=== PATIENT | female | born 1975 | race Caucasian/White ===

== ENCOUNTER 2017-07-03 10:09 | Emergency (ER) | payer OTHER ==
[2017-07-03] MEDS ORDERED: ASPIRIN 81 MG CHEWABLE TABLET ONE (10:49)
[2017-07-03] MEDS ORDERED: FAMOTIDINE 20 MG/2 ML VIAL IV ONE (10:49)
[2017-07-03 10:54] LABS: Absolute Lymphocytes (CBC) 2.1 K/uL (0.7-4.9); Absolute Monocytes 0.4 K/uL (0.1-1.3); Absolute Neutrophil 6.1 K/uL (1.8-8.0); Basophils % 0.6 % (0-1.3); Eosinophils % 1.6 % (0-4.4); Hematocrit 41.4 % (36.0-45.0); Lymphocytes % 23.4 % (15.3-44.8); MCV 92.9 fL (80-100); MPV 8.9 fL (7.6-11.3); Monocytes % 4.7 % (3.3-12.3); RBC Red Blood Cell Count 4.46 M/uL (3.86-4.86)
[2017-07-03 11:00] LABS: Protime INR 0.91
--- NOTE | 2017-07-03 11:01 | RAD REPORT ---
EXAM DESCRIPTION: Jesse Single View07/03/2017 10:56 am CLINICAL HISTORY: Chest pain COMPARISON: January 2016 FINDINGS: The lungs appear clear of acute infiltrate. The heart is normal size IMPRESSION: No acute abnormalities displayed
[2017-07-03 11:07] LABS: Bicarbonate 28 mEq/L (21-31); Glucose Level 97 mg/dL (65-120); Potassium 3.8 mEq/L (3.6-5.0); Sodium Level 137 mEq/L (135-145)
[2017-07-03 11:13] LABS: ALT/SGPT 19 IU/L (10-60); AST/SGOT 21 IU/L (10-42); Albumin 4.1 g/dL (3.2-5.5); Alkaline Phosphatase 77 IU/L (42-121); BUN Blood Urea Nitrogen 9 mg/dL (6-20); Bilirubin Direct < 0.1 mg/dL (0-0.2); Bilirubin Total 0.4 mg/dL (0.3-1.2); Creatine Phosphokinase 87 IU/L (22-269); Magnesium 1.9 mg/dL (1.8-2.5)
[2017-07-03 11:32] LABS: CKMB Creatine Kinase MB 1.8 ng/ml (0.3-4.0)
[2017-07-03 11:37] LABS: Urine Blood NEGATIVE (NEG); Urine Glucose NEGATIVE (NEG); Urine Protein NEGATIVE (NEG); Urine pH 7.5 (5.0-7.0)
--- NOTE | 2017-07-03 12:25 | ER ---
Nurse's Notes [facility] Name: Rosa Guo Age: 42 yrs Sex: Female : 1975 Arrival Date: 07/03/2017 Time: 10:10 Bed 5 Private MD: Diagnosis: Chest pain, unspecified Presentation: 07/03 10:17 Presenting complaint: Patient states: "I was woken up about 2am from chest pain and my sv blood pressure was 145/112. It went down to just discomfort and then came back pain around 5 am when I was going to work." c/o fatigue and back discomfort. 1st CP episode lasted "a couple of hours.". Transition of care: patient was not received from another setting of care. Onset of symptoms was July 03, 2017 at 02:00. 10:17 Method Of Arrival: Wheelchair sv 10:17 Acuity: WILBERTO 3 sv 10:18 Initial Sepsis Screen: Does the patient meet any 2 criteria? No. Patient's initial sv sepsis screen is negative. Does the patient have a suspected source of infection? No. Patient's initial sepsis screen is negative. Care prior to arrival: None. Triage Assessment: 10:30 General: Appears in no apparent distress. comfortable, slender, well developed, sv Behavior is calm, cooperative, appropriate for age. Pain: Denies pain. EENT: No signs and/or symptoms were reported regarding the EENT system. Neuro: Level of Consciousness is awake, alert, obeys commands, Oriented to person, place, time, situation, Moves all extremities. Full function Gait is steady, Speech is normal. Cardiovascular: Heart tones S1 S2 present Patient's skin is warm and dry. Pulses are 3+ in right radial artery and left radial artery Rhythm is sinus rhythm Chest pain is described as vague, Pain is 0 out of 10 on a pain scale. quality is "discomfort" is located in anterior chest wall began 0200 episodes are intermittent. Respiratory: Respiratory effort is even, unlabored, Respiratory pattern is regular, symmetrical, Breath sounds are clear bilaterally. GI: No signs and/or symptoms were reported involving the gastrointestinal system. : No signs and/or symptoms were reported regarding the genitourinary system. Derm: Skin is pink, warm \\T\\ dry. Musculoskeletal: No signs and/or symptoms reported regarding the musculoskeletal system. 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 - Social history:: Smoking status: Patient uses tobacco products, smokes two packs cigarettes per day. Patient/guardian denies using alcohol. - Ebola Screening: : Patient negative for fever greater than or equal to 101.5 degrees Fahrenheit, and additional compatible Ebola Virus Disease symptoms Patient denies exposure to infectious person Patient denies travel to an Ebola-affected area in the 21 days before illness onset No symptoms or risks identified at this time. Screenin:41 Abuse screen: Denies threats or abuse. Denies injuries from another. Nutritional sv screening: No deficits noted. Tuberculosis screening: No symptoms or risk factors identified. Fall Risk None identified. Assessment: 10:41 Reassessment: Pt reports that she had a cough and was given antibiotics and a steroid sv shot about 2 weeks ago. 11:00 Reassessment: Patient appears in no apparent distress at this time. No changes from sv previously documented assessment. Patient and/or family updated on plan of care and expected duration. Pain level reassessed. Patient is alert, oriented x 3, equal unlabored respirations, skin warm/dry/pink. Pt stated that she's under a lot of stress and is going through a divorce at this time. 12:33 Reassessment: Patient appears in no apparent distress at this time. No changes from sv previously documented assessment. Patient and/or family updated on plan of care and expected duration. Pain level reassessed. Patient is alert, oriented x 3, equal unlabored respirations, skin warm/dry/pink. Pt wanting to not do repeat blood work or EKG. Domo INGRAM has spoken with the pt regarding her wanting to leave. 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 Vital Signs: 10:40 BP 108 / 83; Pulse 72 MON; Resp 13; Pulse Ox 97% on R/A; Weight 56.7 kg (R); Height 5 sv ft. 1 in. (154.94 cm) (R); Pain 0/10; 11:05 Temp 98.3; sv 11:18 BP 124 / 92; Pulse 68 MON; Resp 14; Pulse Ox 98% ; sv 11:34 BP 118 / 79 LA Sitting (auto/reg); Pulse 67; Resp 13; Pulse Ox 98% on R/A; sv 11:38 BP 121 / 82 RA Sitting (auto/reg); sv 10:40 Body Mass Index 23.62 (56.70 kg, 154.94 cm) sv 10:40 Sinus Rhythm sv 11:18 Sinus Rhythm sv ED Course: 10:10 Patient arrived in ED. as 10:16 Darby Gordon, NAYA is Primary Nurse. sv 10:24 oDmo Telles PA is PHCP. cp 10:24 Walter Cedeño MD is Attending Physician. cp 10:30 Patient maintains SpO2 saturation greater than 95% on room air. sv 10:34 EKG done, by ED staff, reviewed by Domo INGRAM. sv 10:38 Triage completed. sv 10:41 Urine collected: clean catch specimen, clear. sv 10:41 Arm band placed on right wrist. sv 10:41 Patient has correct armband on for positive identification. Placed in gown. Bed in low sv position. Call light in reach. phototypesetting equipment monitor on. Pulse ox on. NIBP on. Door closed. Head of bed elevated. 10:54 X-ray completed. Portable x-ray completed in exam room. Patient tolerated procedure kw1 well. 10:56 XRAY Chest (1 view) In Process Unspecified. EDMS 11:15 Urine Dipstick--Ancillary (enter results) Sent. sv 12:24 Ki Laureano MD is Referral Physician. cp 12:34 No provider procedures requiring assistance completed. sv 12:34 IV discontinued, intact, bleeding controlled, No redness/swelling at site. Pressure sv dressing applied. Administered Medications: 11:03 Drug: Aspirin Chewable Tablet 324 mg Route: PO; sv 11:13 Follow up: Response: No adverse reaction sv 11:04 Drug: Pepcid 20 mg Route: IVP; Site: right antecubital; sv 11:14 Follow up: Response: No adverse reaction sv Outcome: 12:34 AMA AMA form signed sv 12:34 Condition: stable 12:34 Instructed on follow up and referral plans. 12:35 Patient left the ED. sv Signatures: Dispatcher [employer] Darby Epps RN RN sv Martinez, Amelia as Page, Corey, PA PA cp Wilhelm, Kimberly kw1
--- NOTE | 2017-07-03 12:26 | EDPHYS ---
Physician Documentation [facility] Name: Rosa Guo Age: 42 yrs Sex: Female : 1975 Arrival Date: 07/03/2017 Time: 10:10 Bed 5 Private MD: ED Physician Walter Cedeño HPI: 07/03 10:40 This 42 yrs old Female presents to ER via Wheelchair with complaints of Chest cp Pain, High Blood Pressure. 10:40 The patient or guardian reports chest pain that is located primarily in the anterior cp chest wall, left. 10:40 Onset: this morning, at 02:00, and improved became worse about 0500. cp 10:40 Associated signs and symptoms: Pertinent positives: nausea, back pain, Pertinent cp negatives: abdominal pain, dizziness, headache, lower extremity pain, lower extremity swelling, shortness of breath, syncope, vomiting. The chest pain is described as sharp. Duration: The patient or guardian reports a single episode, that is still ongoing, and unchanged. 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 - Social history:: Smoking status: Patient uses tobacco products, smokes two packs cigarettes per day. Patient/guardian denies using alcohol. - Ebola Screening: : Patient negative for fever greater than or equal to 101.5 degrees Fahrenheit, and additional compatible Ebola Virus Disease symptoms Patient denies exposure to infectious person Patient denies travel to an Ebola-affected area in the 21 days before illness onset No symptoms or risks identified at this time. ROS: 10:45 Eyes: Negative for injury, pain, redness, and discharge. cp 10:45 Constitutional: Negative for body aches, chills, fever, poor PO intake. 10:45 ENT: Negative for drainage from ear(s), ear pain, sore throat, difficulty swallowing, cp difficulty handling secretions. 10:45 Neck: Negative for pain with movement, pain at rest, stiffness, tenderness. 10:45 Cardiovascular: Positive for chest pain, Negative for edema, palpitations. 10:45 Respiratory: Negative for cough, shortness of breath, wheezing. 10:45 Abdomen/GI: Positive for nausea, Negative for abdominal pain, vomiting, diarrhea, constipation, black/tarry stool, rectal bleeding. 10:45 Back: Positive for pain at rest. 10:45 : Negative for urinary symptoms. 10:45 Skin: Negative for cellulitis, rash. 10:45 Neuro: Negative for altered mental status, dizziness, headache, syncope, near syncope, weakness. 10:45 All other systems are negative. Exam: 10:47 ECG was reviewed by the Attending Physician. cp 10:55 Constitutional: The patient appears in no acute distress, alert, awake, cp non-diaphoretic, non-toxic, well developed, well nourished. 10:55 Head/Face: Normocephalic, atraumatic. cp 10:55 Eyes: Pupils equal round and reactive to light, extra-ocular motions intact. Lids and cp lashes normal. Conjunctiva and sclera are non-icteric and not injected. Cornea within normal limits. Periorbital areas with no swelling, redness, or edema. ENT: Nares patent. No nasal discharge, no septal abnormalities noted. Tympanic membranes are normal and external auditory canals are clear. Oropharynx with no redness, swelling, or masses, exudates, or evidence of obstruction, uvula midline. Mucous membranes moist. Neck: Trachea midline, no thyromegaly or masses palpated, and no cervical lymphadenopathy. Supple, full range of motion without nuchal rigidity, or vertebral point tenderness. No Meningismus. Chest/axilla: Normal chest wall appearance and motion. Nontender with no deformity. No lesions are appreciated. 10:55 Cardiovascular: Rate: normal, Rhythm: regular, Pulses: Pulses are 2+ in right radial artery and left radial artery. Heart sounds: murmur, not appreciated, rub, not appreciated, gallop, not appreciated, Edema: is not appreciated, JVD: is not appreciated. 10:55 Respiratory: the patient does not display signs of respiratory distress, Respirations: normal, no use of accessory muscles, no retractions, no splinting, no tachypnea, labored breathing, is not present, Breath sounds: are clear throughout, no decreased breath sounds, no stridor, no wheezing. 10:55 Abdomen/GI: Inspection: abdomen appears normal, Bowel sounds: active, all quadrants, Palpation: abdomen is soft and non-tender, in all quadrants, rebound tenderness, is not appreciated, involuntary guarding, is not appreciated. 10:55 Back: pain, that is mild, ROM is normal, CVA tenderness, is absent. 10:55 Musculoskeletal/extremity: Exam is negative for calf tenderness, edema. 10:55 Skin: cellulitis, is not appreciated, no rash present. 10:55 Neuro: Orientation: to person, place \T\ time. Mentation: lucid, able to follow commands, Cerebellar function: is grossly normal, Motor: moves all fours, strength is normal, Sensation: is normal. Vital Signs: 10:40 BP 108 / 83; Pulse 72 MON; Resp 13; Pulse Ox 97% on R/A; Weight 56.7 kg (R); Height 5 sv ft. 1 in. (154.94 cm) (R); Pain 0/10; 11:05 Temp 98.3; sv 11:18 BP 124 / 92; Pulse 68 MON; Resp 14; Pulse Ox 98% ; sv 11:34 BP 118 / 79 LA Sitting (auto/reg); Pulse 67; Resp 13; Pulse Ox 98% on R/A; sv 11:38 BP 121 / 82 RA Sitting (auto/reg); sv 10:40 Body Mass Index 23.62 (56.70 kg, 154.94 cm) sv 10:40 Sinus Rhythm sv 11:18 Sinus Rhythm sv MDM: 10:25 Patient medically screened. cp 11:00 Differential diagnosis: abnormal EKG, acute myocardial infarction, anxiety, cp gastroesophageal reflux disease (GERD), pancreatitis, pericarditis, pleurisy, pneumonia, pneumothorax, pulmonary embolus, stable angina, thoracic aortic disection, unstable angina. 12:00 The patient was given aspirin in the Emergency Department. cp 12:20 Data reviewed: vital signs, nurses notes, lab test result(s), EKG, radiologic studies, cp plain films. 12:20 Refusal of service: The patient/guardian displays adequate decision making capability cp and despite a detailed discussion of alternatives, benefits, risks, and consequences refuses: continued monitoring and repeat EKG and troponin level. 07/03 10:34 Order name: Urine Dipstick--Ancillary (enter results) mw2 07/03 10:34 Order name: Urine Dipstick-Ancillary; Complete Time: 11:57 EDMS 07/03 11:57 Interpretation: Normal except: UPH 7.5. cp 07/03 10:34 Order name: Basic Metabolic Panel; Complete Time: 11:57 cp 07/03 11:57 Interpretation: Reviewed. cp 07/03 10:34 Order name: BNP; Complete Time: 11:28 cp 07/03 10:34 Order name: CBC with Diff; Complete Time: 11:28 cp 07/03 11:28 Interpretation: Normal except: MCV 92.9. cp 07/03 10:34 Order name: Ckmb; Complete Time: 11:57 cp 07/03 10:34 Order name: CPK; Complete Time: 11:57 cp 07/03 10:34 Order name: LFT's; Complete Time: 11:57 cp 07/03 11:58 Interpretation: Reviewed. cp 07/03 10:34 Order name: Magnesium; Complete Time: 11:57 cp 07/03 10:34 Order name: PT-INR; Complete Time: 11:28 cp 07/03 10:34 Order name: Ptt, Activated; Complete Time: 11:28 cp 07/03 10:34 Order name: Troponin (emerg Dept Use Only); Complete Time: 11:28 cp 07/03 11:58 Interpretation: Reviewed. cp 07/03 10:34 Order name: XRAY Chest (1 view); Complete Time: 11:28 cp 07/03 10:34 Order name: EKG; Complete Time: 10:35 cp 07/03 10:34 Order name: Cardiac monitoring; Complete Time: 11:15 cp 07/03 10:34 Order name: EKG - Nurse/Tech; Complete Time: 11:15 cp 07/03 10:34 Order name: IV Saline Lock; Complete Time: 11:15 cp 07/03 10:34 Order name: Labs collected and sent; Complete Time: 11:15 cp 07/03 10:34 Order name: O2 Per Protocol; Complete Time: 11:15 cp 07/03 10:34 Order name: O2 Sat Monitoring; Complete Time: 11:15 cp 07/03 10:34 Order name: Urine Dipstick-Ancillary (obtain specimen); Complete Time: 11:15 cp 07/03 11:29 Order name: Blood Pressure Recheck: bilateral upper extremities; Complete Time: 11:38 cp EC:47 Rate is 73 beats/min. Rhythm is regular. IA interval is normal. QRS interval is normal. cp QT interval is normal. No ST changes noted. Interpreted by me. Administered Medications: 11:03 Drug: Aspirin Chewable Tablet 324 mg Route: PO; sv 11:13 Follow up: Response: No adverse reaction sv 11:04 Drug: Pepcid 20 mg Route: IVP; Site: right antecubital; sv 11:14 Follow up: Response: No adverse reaction sv Disposition: 16:39 Co-signature as Attending Physician, Walter Cedeño MD. Disposition: 07/03/17 12:24 Patient has left against medical advice. Impression: Chest pain, unspecified. - Patients states they are going to Home. - Condition is Stable. - Discharge Instructions: Nonspecific Chest Pain, Aspirin and Your Heart, Managing Your High Blood Pressure. Work release form form. Follow up: Private Physician; When: 1 - 2 days; Reason: Recheck today's complaints. Follow up: Ki Laureano MD; When: 1 - 2 days; Reason: Recheck today's complaints. - Problem is new. - Symptoms have improved. Signatures: Dispatcher [employer] Darby Epps RN RN sv Page, Corey, PA PA cp Starr, Gregory, MD MD Corrections: (The following items were deleted from the chart) 11:14 10:34 Urine Test ordered. sv
--- NOTE | 2017-07-03 15:39 | EKG ---
Test Date: 2017-07-03 Test Time: 10:26:18 Office Clerk: JAQUI MEASUREMENT RESULTS: Intervals: Rate: 73 UT: 136 QRSD: 78 QT: 374 QTc: 412 [place]: P: 49 UT: 136 QRS: 33 T: 36 INTERPRETIVE STATEMENTS: Normal sinus rhythm Normal ECG Compared to ECG 01/12/2016 15:35:53 No significant changes Electronically Signed On 07-03-17 15:37:39 CDT by Genaro Breen
== END 2017-07-03 12:35 | disposition left against medical advice (07) ==
LOC: ER 10:09
DX: R07.9 Chest pain, unspecified (principal); I10 Essential (primary) hypertension; F31.9 Bipolar disorder, unspecified; Z88.0 Allergy status to penicillin; Z88.3 Allergy status to other anti-infective agents; Z88.5 Allergy status to narcotic agent; Z88.8 Allergy status to other drugs, medicaments and biological substances
CPT/HCPCS: 36415; 71045; 80048; 80076; 81003; 82550; 82553; 83735; 83880; 84484; 85025; 85610; 85730; 93005; 96374; 99285